=== PATIENT | female | born 1970 | race Caucasian/White ===

== ENCOUNTER 2019-11-30 14:34 | Emergency (ER) | payer OTHER ==
[~2019-11-30] VITALS: Ht 154.9 cm; Wt 63.5 kg
[2019-11-30 14:35] VITALS: BP_SYST 133
--- NOTE | 2019-11-30 14:35 | NUR ---
Patient to ER bed 5 to gown for evaluation. Side rails up.
--- NOTE | 2019-11-30 14:40 | NUR ---
Pt came to ER for chest discomfort rates pain 5/10 currently resting in [facility], no other complaints, VSS
--- NOTE | 2019-11-30 14:50 | NUR ---
ER at bedside examining patient.
[2019-11-30 15:20] VITALS: BP_SYST 133
--- NOTE | 2019-11-30 15:20 | NUR ---
Patient given written and verbal discharge instructions and verbalizes understanding. ER MD discussed with patient the results and treatment provided. Patient in stable condition. ID arm band removed. Rx of Naprosyn given. Patient educated on pain management and to follow up with PMD. Pain Scale 0/10. Opportunity for questions provided and answered. Medication side effect fact sheet provided.
== END 2019-11-30 15:20 | disposition home or self-care (01) ==
LOC: SED 14:34
DX: M94.0 Chondrocostal junction syndrome [Tietze] (principal)
CPT/HCPCS: 99282

== ENCOUNTER 2020-09-13 20:26 | Emergency (ER) | payer OTHER ==
[~2020-09-13] VITALS: Ht 152.4 cm; Wt 68.0 kg
[2020-09-13 20:30] VITALS: BP_SYST 113
[2020-09-13] MEDS ORDERED: KETOROLAC TROMETHAMINE 30 MG VIAL IM ONE (23:00)
[2020-09-14 03:03] VITALS: BP_SYST 126
== END 2020-09-14 03:03 | disposition home or self-care (01) ==
LOC: SED 20:26
DX: M54.5 Low back pain (principal); W01.0XXA Fall on same level from slipping, tripping and stumbling without subsequent striking against object, initial encounter; Y93.89 Activity, other specified; Y92.89 Other specified places as the place of occurrence of the external cause; Y99.8 Other external cause status
CPT/HCPCS: 72128; 72131; 72170; 73502; 76376; 96372; 99285; J1885

== ENCOUNTER 2021-06-11 12:56 | Emergency (ER) | payer OTHER ==
[~2021-06-11] VITALS: Ht 154.9 cm; Wt 68.0 kg
[2021-06-11 13:05] VITALS: BP_SYST 125
--- NOTE | 2021-06-11 13:05 | NUR ---
Patient triaged and placed in waiting room. VSS and patient appears in no acute distress at this time. Accompanied by FAMILY, awaiting available bed, and MD notified of need for MSE.
--- NOTE | 2021-06-11 14:01 | NUR ---
DR CHATTERJEE EVALUATING PT IN TRIAGE ROOM
--- NOTE | 2021-06-11 14:14 | NUR ---
BROUGHT BACK TO BED #7 AND REPORT GIVEN TO ALMA ROSA
[2021-06-11] MEDS ORDERED: IBUP-1969 PO (15:48)
[2021-06-11] MEDS ORDERED: SOM350 PO (15:48)
--- NOTE | 2021-06-11 16:05 | NUR ---
Patient given written and verbal discharge instructions and verbalizes understanding. ER MD discussed with patient the results and treatment provided. Patient in stable condition. ID arm band removed. Rx of given. Patient educated on pain management and to follow up with PMD. Pain Scale 7/10. Opportunity for questions provided and answered. Medication side effect fact sheet provided.
[2021-06-11 16:06] VITALS: BP_SYST 121
== END 2021-06-11 16:05 | disposition home or self-care (01) ==
LOC: SED 12:56
DX: S16.1XXA Strain of muscle, fascia and tendon at neck level, initial encounter (principal); S23.3XXA Sprain of ligaments of thoracic spine, initial encounter; Z79.899 Other long term (current) drug therapy; V49.49XA Driver injured in collision with other motor vehicles in traffic accident, initial encounter; Y93.89 Activity, other specified; Y92.89 Other specified places as the place of occurrence of the external cause; Y99.8 Other external cause status
CPT/HCPCS: 71045; 72040-TC; 72100-TC; 99284

== ENCOUNTER 2022-08-28 11:14 | Emergency (ER) | payer OTHER ==
[~2022-08-28] VITALS: Ht 152.4 cm; Wt 81.6 kg
[~2022-08-28 11:14] MED LIST: IBUP-1969 PO; MECL-261 PO; SOM350 PO
[2022-08-28 11:47] VITALS: BP_SYST 124; PULSE 63; RESP 18; TEMP 97.3; O2SAT 99
[2022-08-28 12:40] LABS: BASOPHILS % (AUTO) 0.7 % (0.0-2.0); EOSINOPHILS % (AUTO) 0.7 % (0.0-4.0); HEMATOCRIT 40.6 % (36-48); HEMOGLOBIN 13.3 g/dL (12.0-16.0); LYMPHOCYTES # (AUTO) 1.3 K/uL (1.0-5.5); LYMPHOCYTES % (AUTO) 24.7 % (20.5-51.5); MEAN CORPUSCULAR HEMOGLOBIN 29 pg (27-31); MEAN CORPUSCULAR HGB CONC 33 % (32-36); MEAN CORPUSCULAR VOLUME 87 fL (79.0-98.0); MONOCYTES # (AUTO) 0.2 K/uL (0.0-1.0); MONOCYTES % (AUTO) 3.7 % (1.7-9.3); NEUTROPHILS # (AUTO) 3.8 K/uL (1.8-7.7); NEUTROPHILS % (AUTO) 70.2 % (40.0-70.0); PLATELET COUNT (AUTO) 302 K/uL (130-430); RED BLOOD CELL COUNT(AUTO) 4.66 MIL/uL (4.2-6.2); RED CELL DISTRIBUTION WIDTH 13.9 % (9.0-15.0); WHITE BLOOD COUNT (AUTO) 5.4 K/uL (4.8-10.8)
[2022-08-28 12:47] LABS: ANION GAP 8 (5-15); CALCIUM 8.7 mg/dL (8.4-11.0); CHLORIDE 105 mmol/L (98-107); CREATININE 0.59 mg/dL (0.55-1.30); GFR AFRICAN AMERICAN 138 mL/min (>90); GLUCOSE 120 mg/dL (74-106); UREA NITROGEN, BLOOD 13 mg/dL (8-21)
[2022-08-28 13:03] LABS: ALANINE AMINOTRANSFERASE 18 U/L (12-78); ALBUMIN 3.8 g/dL (3.4-4.8); ASPARTATE AMINOTRANSFERASE 14 U/L (10-37); TOTAL BILIRUBIN 0.4 mg/dL (0.0-1.0)
[2022-08-28] MEDS ORDERED: MECL-261 PO (14:15)
[2022-08-28 15:06] VITALS: BP_SYST 124; PULSE 63; RESP 18; TEMP 97.3; O2SAT 99
== END 2022-08-28 15:07 | disposition home or self-care (01) ==
LOC: SED 11:14
DX: D32.9 Benign neoplasm of meninges, unspecified (principal); R42 Dizziness and giddiness; R51.9 Headache, unspecified; R11.2 Nausea with vomiting, unspecified; Z79.899 Other long term (current) drug therapy
CPT/HCPCS: 99285; 70450; 71045; 80053; 84703; 85025; 84484; 36415; 93005; 76376; J7030

== ENCOUNTER 2022-09-11 16:33 | Emergency (ER) | payer OTHER ==
[~2022-09-11] VITALS: Ht 154.9 cm; Wt 70.3 kg
[2022-09-11 17:07] VITALS: BP_SYST 127; PULSE 63; RESP 18; TEMP 97.6; O2SAT 96
--- NOTE | 2022-09-11 17:08 | NUR ---
ER at bedside examining patient.
--- NOTE | 2022-09-11 17:40 | NUR ---
PT TO RADIOLOGY AMBULATES WITH STEADY GAIT
--- NOTE | 2022-09-11 18:00 | NUR ---
Patient given written and verbal discharge instructions and verbalizes understanding. ER MD discussed with patient the results and treatment provided. Patient in stable condition. ID arm band removed. Patient educated on pain management and to follow up with PMD. Opportunity for questions provided and answered. Medication side effect fact sheet provided.
[2022-09-11 18:23] VITALS: BP_SYST 127; PULSE 63; RESP 18; TEMP 97.6; O2SAT 96
== END 2022-09-11 18:23 | disposition home or self-care (01) ==
LOC: SED 16:33
DX: S00.12XA Contusion of left eyelid and periocular area, initial encounter (principal); Z79.899 Other long term (current) drug therapy; W22.8XXA Striking against or struck by other objects, initial encounter; Y93.89 Activity, other specified; Y92.89 Other specified places as the place of occurrence of the external cause; Y99.8 Other external cause status
CPT/HCPCS: 70150-TC; 99283

== ENCOUNTER 2022-11-20 16:22 | Emergency (ER) | payer OTHER ==
[~2022-11-20] VITALS: Ht 162.6 cm; Wt 70.8 kg
[2022-11-20 16:53] VITALS: BP_SYST 132; PULSE 57; RESP 18; TEMP 98; O2SAT 100
[2022-11-20] MEDS ORDERED: ZAN4 PO (18:02)
[2022-11-20 18:15] VITALS: BP_SYST 132; PULSE 57; RESP 18; TEMP 98; O2SAT 100
== END 2022-11-20 18:16 | disposition home or self-care (01) ==
LOC: SED 16:22
DX: S29.012A Strain of muscle and tendon of back wall of thorax, initial encounter (principal); Z79.899 Other long term (current) drug therapy; X50.0XXA Overexertion from strenuous movement or load, initial encounter; Y93.89 Activity, other specified; Y92.89 Other specified places as the place of occurrence of the external cause; Y99.8 Other external cause status
CPT/HCPCS: 99283

== ENCOUNTER 2023-03-15 10:08 | Emergency (ER) | payer OTHER ==
[~2023-03-15] VITALS: Ht 152.4 cm; Wt 72.6 kg
[2023-03-15 10:08] VITALS: BP_SYST 118; PULSE 69; RESP 18; TEMP 97.5; O2SAT 98
[~2023-03-15 10:08] MED LIST changes: +ZAN4 PO
[2023-03-15 11:32] VITALS: BP_SYST 118; PULSE 69; RESP 18; TEMP 97.5; O2SAT 98
== END 2023-03-15 11:32 | disposition home or self-care (01) ==
LOC: SED 10:08
DX: Z00.00 Encounter for general adult medical examination without abnormal findings (principal); Z79.899 Other long term (current) drug therapy
CPT/HCPCS: 99281